=== PATIENT | male | born 1985 | race African-American/Black ===

== ENCOUNTER 2018-09-20 02:10 | Emergency (ER) | payer SELFPAY ==
[~2018-09-20] VITALS: Ht 170.2 cm; Wt 102.5 kg
[2018-09-20 02:15] VITALS: BP 170/88
[2018-09-20] MEDS ORDERED: METH4TAB2 PO (02:55)
[2018-09-20] MEDS ORDERED: INDO75CA3 PO (02:55)
--- NOTE | 2018-09-20 02:55 | PHYS DOC ---
Past Medical History Past Medical History: No Pertinent History Past Surgical History: Tonsillectomy Additional Information: VAPES Alcohol Use: Occasionally Drug Use: None Adult General Chief Complaint Chief Complaint: UPPER EXTREMITY PAIN HPI HPI Patient is a 32 year old [f__sex] who presents with [] Review of Systems Review of Systems Constitutional: Denies fever or chills [] Eyes: Denies change in visual acuity, redness, or eye pain [] HENT: Denies nasal congestion or sore throat [] Respiratory: Denies cough or shortness of breath [] Cardiovascular: No additional information not addressed in HPI [] GI: Denies abdominal pain, nausea, vomiting, bloody stools or diarrhea [] : Denies dysuria or hematuria [] Musculoskeletal: Denies back pain or joint pain [] Integument: Denies rash or skin lesions [] Neurologic: Denies headache, focal weakness or sensory changes [] Endocrine: Denies polyuria or polydipsia [] All other systems were reviewed and found to be within normal limits, except as documented in this note. Current Medications Current Medications Current Medications Medications (Trade) Dose Ordered Sig/Marquita Start Time Stop Time Status Last Admin Dose Admin Dexamethasone Sodium Phosphate (Decadron) 20 mg 1X ONCE 09/20/18 03:00 09/20/18 03:01 09/20/18 02:44 20 MG Ketorolac Tromethamine (Toradol Im) 60 mg 1X ONCE 09/20/18 03:00 09/20/18 03:01 09/20/18 02:43 60 MG Allergies Allergies Allergies Coded Allergies Type Severity Reaction Last Updated Verified Sulfa (Sulfonamide Antibiotics) Allergy Severe ANAPHYLAXIS 02/19/18 Yes Physical Exam Physical Exam Constitutional: Well developed, well nourished, no acute distress, non-toxic appearance. [] HENT: Normocephalic, atraumatic, bilateral external ears normal, oropharynx moist, no oral exudates, nose normal. [] Eyes: PERRLA, EOMI, conjunctiva normal, no discharge. [] Neck: Normal range of motion, no tenderness, supple, no stridor. [] Cardiovascular:Heart rate regular rhythm, no murmur [] Lungs & Thorax: Bilateral breath sounds clear to auscultation [] Abdomen: Bowel sounds normal, soft, no tenderness, no masses, no pulsatile masses. [] Skin: Warm, dry, no erythema, no rash. [] Back: No tenderness, no CVA tenderness. [] Extremities: No tenderness, no cyanosis, no clubbing, ROM intact, no edema. [] Neurologic: Alert and oriented X 3, normal motor function, normal sensory function, no focal deficits noted. [] Psychologic: Affect normal, judgement normal, mood normal. [] Current Patient Data Vital Signs Vital Signs Date Time Temp Pulse Resp B/P (MAP) Pulse Ox O2 Delivery O2 Flow Rate FiO2 09/20/18 02:15 97.7 94 16 170/88 (115) 100 Room Air 97.7 EKG EKG [] Radiology/Procedures Radiology/Procedures [] Course & Med Decision Making Course & Med Decision Making Pertinent Labs and Imaging studies reviewed. (See chart for details) [] Dragon Disclaimer Dragon Disclaimer This electronic medical record was generated, in whole or in part, using a voice recognition dictation system. Departure Departure Impression: Primary Impression: Shoulder tendinitis Additional Impression: Elbow tendinitis Disposition: 01 HOME, SELF-CARE Condition: STABLE Referrals: NO PCP (PCP) Patient Instructions: Tendinitis Scripts Methylprednisolone (MEDROL) 4 Mg Tab.ds.pk 1 PKG PO UD, #1 PKG Prov: MARCE LO Jr. DO 09/20/18 Indomethacin (INDOMETHACIN) 75 Mg Capsule.er 1 CAP PO BID PRN for PAIN, #20 CAP Prov: MARCE LO Jr. DO 09/20/18 Problem Qualifiers Primary Impression: Shoulder tendinitis Laterality: left Qualified Codes: M75.82 - Other shoulder lesions, left shoulder MARCE LO Jr. DO Sep 20, 2018 02:55
[2018-09-20] MEDS ORDERED: KETOROLAC 60 MG/2 ML VIAL. IM ONE (03:00)
[2018-09-20] MEDS ORDERED: DEXAMETHASONE SOD PHOS 20 MG/5 ML VIAL. IM ONE (03:00)
== END 2018-09-20 03:00 | disposition home or self-care (01) ==
LOC: ER 02:10
DX: M75.82 Other shoulder lesions, left shoulder (principal); M77.8 Other enthesopathies, not elsewhere classified; F17.210 Nicotine dependence, cigarettes, uncomplicated; Z90.89 Acquired absence of other organs; Z88.2 Allergy status to sulfonamides
CPT/HCPCS: 96372; 99284; J1100; J1885